=== PATIENT | female | born 1985 | race Caucasian/White ===

== ENCOUNTER 2016-11-21 20:46 | Emergency (ER) | payer MEDICAID ==
[~2016-11-21] VITALS: Ht 157.5 cm; Wt 60.6 kg
[2016-11-21 20:56] VITALS: BP 125/79
== END 2016-11-21 22:23 | disposition home or self-care (01) ==
LOC: ED 21:55
DX: J00 Acute nasopharyngitis [common cold] (principal); J01.90 Acute sinusitis, unspecified
CPT/HCPCS: 99283

== ENCOUNTER 2016-11-28 22:30 | Emergency (ER) | payer MEDICAID ==
[~2016-11-28] VITALS: Ht 157.5 cm; Wt 60.8 kg
[2016-11-28 22:32] VITALS: BP 132/85
[2016-11-28] MEDS ORDERED: IBUPROFEN 200 MG TABLET ONE (23:17)
[2016-11-28] MEDS ORDERED: IBUPROFEN 200 MG TABLET PO ONE (23:30)
== END 2016-11-28 23:51 | disposition home or self-care (01) ==
LOC: ED 23:00
DX: J00 Acute nasopharyngitis [common cold] (principal); Z77.22 Contact with and (suspected) exposure to environmental tobacco smoke (acute) (chronic)
CPT/HCPCS: 99282; 99283

== ENCOUNTER 2017-05-10 17:40 | Emergency (ER) | payer MEDICAID ==
[~2017-05-10] VITALS: Ht 157.5 cm; Wt 56.7 kg
[2017-05-10] MEDS ORDERED: ONDANSETRON 2MG/ML, 2ML IVPush ONE (18:30)
[2017-05-10] MEDS ORDERED: SODIUM CHLORIDE FLUSH 10ML SYR IVF ONE (18:30)
[2017-05-10] MEDS ORDERED: MORPHINE SULFATE 4 MG/ML, 1ML IVPush PRN (18:30)
[2017-05-10 18:55] LABS: HEMATOCRIT 42.4 % (34.6-47.8); HEMOGLOBIN 14.5 g/dL (11.7-16.4)
[2017-05-10 19:06] LABS: ASPARTATE AMINO TRANSFERASE 14 U/L (15-37); BLOOD UREA NITROGEN 19 mg/dL (7-18)
[2017-05-10] MEDS ORDERED: MORPHINE SULFATE 4 MG/ML, 1ML ONE (19:21)
[2017-05-10] MEDS ORDERED: ONDANSETRON 2MG/ML, 2ML ONE (19:22)
[2017-05-10] MEDS ORDERED: IBUP200C5 PO (19:25)
[2017-05-10 21:23] VITALS: BP 110/63
== END 2017-05-10 21:21 | disposition home or self-care (01) ==
LOC: ED 21:00
DX: N83.201 Unspecified ovarian cyst, right side (principal); R10.12 Left upper quadrant pain
CPT/HCPCS: 36415; 76830; 80053; 81001; 83690; 84703; 85025; 96374; 96375; 99285; J2405

== ENCOUNTER 2018-03-02 21:01 | Outpatient (CLI) | payer MEDICAID ==
[~2018-03-02] VITALS: Ht 157.5 cm; Wt 54.5 kg
[~2018-03-02 21:01] MED LIST: IBUP200C5 PO
[2018-03-02 21:38] LABS: MICROSCOPIC INDICATED
[2018-03-02 21:42] LABS: AMPHETAMINE SCREEN, URINE Negative (Negative); BARBITURATE SCREEN, URINE Negative (Negative); BENZODIAZEPINE SCREEN, URINE Negative (Negative); CANNABINOID SCREEN, URINE Negative (Negative); COCAINE SCREEN, URINE Negative (Negative); METHADONE SCREEN, URINE Negative (Negative); OPIATE SCREEN, URINE Negative (Negative)
[2018-03-02 22:16] LABS: BASOPHILS # (AUTO) 0.01 x10^3/uL (0-0.1); BASOPHILS % (AUTO) 0 % (0-1); EOSINOPHILS # (AUTO) 0.06 x10^3/uL (0-0.4); EOSINOPHILS % (AUTO) 1 % (1-7); LYMPHOCYTES # (AUTO) 1.37 x10^3/uL (1-3.4); LYMPHOCYTES % (AUTO) 10 % (22-44); MD NO; MEAN CORPUSCULAR HEMOGLOBIN 30.5 pg (27.0-34.8); MEAN CORPUSCULAR VOLUME 89.9 fL (80-100); MEAN PLATELET VOLUME 8.1 fL (7.4-10.4); MONOCYTES # (AUTO) 0.36 x10^3/uL (0.2-0.8); MONOCYTES % (AUTO) 3 % (2-9); NEUTROPHILS # (AUTO) 11.62 x10^3/uL (1.8-6.8); NEUTROPHILS % (AUTO) 87 % (42-75); PLATELET COUNT 308 x10^3/uL (130-400); RED BLOOD COUNT 4.33 x10^6/uL (3.82-5.3)
[2018-03-02 23:43] LABS: MICROSCOPIC AUTO
[2018-03-02 23:45] LABS: CULTURE INDICATED? NO
== END 2018-03-03 00:21 | disposition home or self-care (01) ==
LOC: LDOP 21:01
PROVIDERS: ATTEND Obstetrics & Gynecology Gynecology
DX: O26.892 Other specified pregnancy related conditions, second trimester (principal); R10.9 Unspecified abdominal pain; Z3A.27 27 weeks gestation of pregnancy
CPT/HCPCS: 36415; 59025; 76805; 80307; 81001; 85025; 86592; 86762; 86803; 86850; 86900; 87086; 87340; 87806; 99211; P9612; G0463; G0475